=== PATIENT | female | born 1960 | race African-American/Black ===

== ENCOUNTER 2016-07-30 21:09 | Emergency (ER) | payer SELFPAY ==
[~2016-07-30 21:09] MED LIST: ASPI-110 PO; CARB6.5S5 EACH EAR; OMEP20TA PO; ROBA500T PO
[2016-07-30 21:12] VITALS: BP 208/122; PULSE 87; RESP 15; TEMP 98.8; O2SAT 100
[2016-07-30] MEDS ORDERED: RAMI5CAP PO (21:49)
[2016-07-30] MEDS ORDERED: PROM12.54 PO (21:49)
[2016-07-30] MEDS ORDERED: DICL75TA PO (21:49)
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
[2016-07-30] MEDS ORDERED: DEXAMETHASONE SOD PHOS 4 MG/ML VIAL IM ONE (22:00)
[2016-07-30] MEDS ORDERED: ORPHENADRINE INJ 60 MG/2 ML AMP IM ONE (22:00)
[2016-07-30] MEDS ORDERED: ORPH100T99 PO (22:35)
[2016-07-30] MEDS ORDERED: MEDR4PAK PO (22:35)
[2016-07-30 22:51] VITALS: BP 180/110
== END 2016-07-30 23:12 | disposition home or self-care (01) ==
LOC: NEPC 21:09
DX: M54.12 Radiculopathy, cervical region (principal)
CPT/HCPCS: 96372; 99284; J1100; J2360